=== PATIENT | male | born 1980 | race Caucasian/White ===

== ENCOUNTER 2016-09-23 02:16 | Inpatient (IN) | payer OTHER ==
[2016-09-23] MEDS ORDERED: IV VANCOMYCIN PER PHARMACY 1 EACH MISC MISCELLANE PRN (02:37)
[2016-09-23] MEDS ORDERED: ACETAMINOPHEN TAB 500 MG TAB PO STA (02:37)
[2016-09-23] MEDS ORDERED: AMPICILLIN-SULBACTAM 3 GM in SODIUM CHLORIDE 0.9% 100 ML IVPB STA (02:44)
[2016-09-23] MEDS ORDERED: VANCOMYCIN 2,500 MG in SODIUM CHLORIDE 0.9% 500 ML IVPB STA (02:47)
[2016-09-23] MEDS ORDERED: ENALAPRILAT 1.25 MG/ML 1 ML VIAL IVP STA (02:50)
--- NOTE | 2016-09-23 02:50 | ED ---
Skin/Abscess/FB HPI - General Source: patient, RN notes reviewed Mode of arrival: ambulatory Limitations: no limitations <Darlin Moser - Last Filed: 09/23/16 03:38> <Curtis Patiño - Last Filed: 09/23/16 04:00> - General Chief complaint: Skin/Abscess/Foreign Body Stated complaint: leg infection Time Seen by Provider: 09/23/16 02:26 - History of Present Illness Initial comments: 35-year-old male presents to the emergency room chief complaint of abscess and redness to the left lower externa. Patient states this started last 2 days today he notes just become very red and very tender. Patient has noticed some drainage from the area as well. Patient denies any history of MRSA in the legs. Patient states he is very weak and rundown. Patient states that he was concerned due to the fact this was worsening street thought that he should be reevaluated. Patient also does state that recently he was informed he has high blood pressure as well as a high glucose and is currently trying to get into the doctor to be evaluated for this. Patient denies any recent fever, chills, shortness of breath, chest pain, back pain, abdominal pain, nausea vomiting, numbness or tingling, dysuria or hematuria, constipation or diarrhea, headaches or visual changes, or any other current symptoms. (Darlin Moser) - Related Data Home Medications Medication Instructions Recorded Confirmed Dextroamphetamine/Amphetamine 20 mg PO DAILY 09/23/16 09/23/16 [Adderall] Allergies Allergy/AdvReac Type Severity Reaction Status Date / Time No Known Allergies Allergy Verified 09/23/16 02:24 Review of Systems ROS Other: All systems not noted in ROS Statement are negative. <Darlin Moser - Last Filed: 09/23/16 03:38> ROS Other: All systems not noted in ROS Statement are negative. <Curtis Patiño - Last Filed: 09/23/16 04:00> ROS Statement: Those systems with pertinent positive or pertinent negative responses have been documented in the HPI. Past Medical History Past Medical History: Hypertension History of Any Multi-Drug Resistant Organisms: None Reported Past Surgical History: No Surgical Hx Reported Past Psychological History: No Psychological Hx Reported Smoking Status: Current every day smoker Past Alcohol Use History: Occasional Past Drug Use History: Marijuana <Darlin Moser - Last Filed: 09/23/16 03:38> General Exam Limitations: no limitations General appearance: alert, in no apparent distress Eye exam: Present: normal appearance, PERRL, EOMI. Absent: scleral icterus, conjunctival injection, periorbital swelling ENT exam: Present: normal exam, mucous membranes moist Neck exam: Present: normal inspection. Absent: tenderness, meningismus, lymphadenopathy Respiratory exam: Present: normal lung sounds bilaterally. Absent: respiratory distress, wheezes, rales, rhonchi, stridor Cardiovascular Exam: Present: regular rate, normal rhythm, normal heart sounds. Absent: systolic murmur, diastolic murmur, rubs, gallop, clicks Neurological exam: Present: alert, oriented X3, CN II-XII intact. Absent: motor sensory deficit Psychiatric exam: Present: normal affect, normal mood Skin exam: Present: other (patient does appear to have cellulitis with a firm nodule to the left inner thigh. There was minimal fluctuance to the area. There does appear to be an area of drainage as well.) <Darlin Moser - Last Filed: 09/23/16 03:38> Course <Darlin Moser - Last Filed: 09/23/16 03:38> <Curtis Patiño - Last Filed: 09/23/16 04:00> Vital Signs 09/23/16 09/23/16 09/23/16 02:21 02:26 03:00 Temperature 99.0 F 100.5 F H 99.0 F Pulse Rate 127 H 114 H Respiratory 24 22 Rate Blood Pressure 215/135 175/93 O2 Sat by Pulse 98 98 Oximetry 09/23/16 03:14 Temperature Pulse Rate 108 H Respiratory 18 Rate Blood Pressure 175/71 O2 Sat by Pulse 98 Oximetry - Reevaluation(s) Reevaluation #1: 09/23/16 03:59 Patient reevaluated and updated. Case discussed with practitioner Neha ram, who will admit for Dr. Botello, covering for Dr. Alice Botello. (Curtis Patiño) Procedures <Darlin Moser - Last Filed: 09/23/16 03:38> <Curtis Patiño - Last Filed: 09/23/16 04:00> - Procedures Initial comment: Procedure: Incision and drainage The skin overlying the abscess was prepped with Betadine, and anesthetized with 1% lidocaine without epinephrine. A #11 scalpel was then used to incise the abscess. minimal purulent material was then extracted from the lesion. Gauze dressing placed on top, The patient tolerated the procedure well. (Darlin Moser) Medical Decision Making - Lab Data Result diagrams: 09/23/16 02:50 09/23/16 02:50 Interpretation: no acute changes <Darlin Moser - Last Filed: 09/23/16 03:38> - Lab Data Result diagrams: 09/23/16 02:50 09/23/16 02:50 <Curtis Patiño - Last Filed: 09/23/16 04:00> - Medical Decision Making 35-year-old male presents emergency Department what appears to be a left left leg cellulitis with concern for possible abscess to the area patient does appear to be septic at this time. Antibiotics were started. Patient did undergo I&D that did not produce much purulent material. At this time we will admit the patient for IV antibiotics. We discussed this with the patient is in agreement with the plan. Patient is found to be hypertensive we did treat him with Vasotec. Patient is found to be hyperglycemic with a normal acetone and mild elevated lactic. We will continue to hydrate and admit pt for antibiotics. (Darlin Moser) - Lab Data Lab Results 09/23/16 09/23/16 09/23/16 Range/Units 02:50 02:50 02:50 WBC 6.9 (3.8-10.6) k/uL RBC 4.39 (4.30-5.90) m/uL Hgb 14.4 (13.0-17.5) gm/dL Hct 41.9 (39.0-53.0) % MCV 95.4 (80.0-100.0) fL MCH 32.8 (25.0-35.0) pg MCHC 34.3 (31.0-37.0) g/dL RDW 12.4 (11.5-15.5) % Plt Count 240 (150-450) k/uL Neutrophils % 66 % Lymphocytes % 21 % Monocytes % 7 % Eosinophils % 2 % Basophils % 1 % Neutrophils # 4.6 (1.3-7.7) k/uL Lymphocytes # 1.4 (1.0-4.8) k/uL Monocytes # 0.5 (0-1.0) k/uL Eosinophils # 0.2 (0-0.7) k/uL Basophils # 0.1 (0-0.2) k/uL PT (9.0-12.0) sec INR (<1.1) APTT (22.0-30.0) sec Sodium 139 (137-145) mmol/L Potassium 3.5 (3.5-5.1) mmol/L Chloride 103 (98-107) mmol/L Carbon Dioxide 27 (22-30) mmol/L Anion Gap 9 mmol/L BUN 16 (9-20) mg/dL Creatinine 0.76 (0.66-1.25) mg/dL Est GFR (MDRD) Af Amer >60 (>60 ml/min/1.73 sqM) Est GFR (MDRD) Non-Af >60 (>60 ml/min/1.73 sqM) Glucose 355 H (74-99) mg/dL POC Glucose (mg/dL) (75-99) mg/dL POC Glu Collator Hand ID Plasma Lactic Acid César (0.7-2.0) mmol/L Calcium 9.0 (8.4-10.2) mg/dL Total Bilirubin 0.6 (0.2-1.3) mg/dL AST 33 (17-59) U/L ALT 46 (21-72) U/L Alkaline Phosphatase 109 (38-126) U/L Total Creatine Kinase 282 H (55-170) U/L CK-MB (CK-2) 3.2 H* (0.0-2.4) ng/mL CK-MB (CK-2) Rel Index 1.1 Troponin I <0.012 (0.000-0.034) ng/mL Total Protein 8.1 (6.3-8.2) g/dL Albumin 4.0 (3.5-5.0) g/dL Acetone, Qual (Negative) 09/23/16 09/23/16 09/23/16 Range/Units 02:50 02:50 02:50 WBC (3.8-10.6) k/uL RBC (4.30-5.90) m/uL Hgb (13.0-17.5) gm/dL Hct (39.0-53.0) % MCV (80.0-100.0) fL MCH (25.0-35.0) pg MCHC (31.0-37.0) g/dL RDW (11.5-15.5) % Plt Count (150-450) k/uL Neutrophils % % Lymphocytes % % Monocytes % % Eosinophils % % Basophils % % Neutrophils # (1.3-7.7) k/uL Lymphocytes # (1.0-4.8) k/uL Monocytes # (0-1.0) k/uL Eosinophils # (0-0.7) k/uL Basophils # (0-0.2) k/uL PT 10.3 (9.0-12.0) sec INR 1.0 (<1.1) APTT 22.4 (22.0-30.0) sec Sodium (137-145) mmol/L Potassium (3.5-5.1) mmol/L Chloride (98-107) mmol/L Carbon Dioxide (22-30) mmol/L Anion Gap mmol/L BUN (9-20) mg/dL Creatinine (0.66-1.25) mg/dL Est GFR (MDRD) Af Amer (>60 ml/min/1.73 sqM) Est GFR (MDRD) Non-Af (>60 ml/min/1.73 sqM) Glucose (74-99) mg/dL POC Glucose (mg/dL) (75-99) mg/dL POC Glu Collator Hand ID Plasma Lactic Acid César 3.7 H* (0.7-2.0) mmol/L Calcium (8.4-10.2) mg/dL Total Bilirubin (0.2-1.3) mg/dL AST (17-59) U/L ALT (21-72) U/L Alkaline Phosphatase (38-126) U/L Total Creatine Kinase (55-170) U/L CK-MB (CK-2) (0.0-2.4) ng/mL CK-MB (CK-2) Rel Index Troponin I (0.000-0.034) ng/mL Total Protein (6.3-8.2) g/dL Albumin (3.5-5.0) g/dL Acetone, Qual Negative (Negative) 09/23/16 Range/Units 02:59 WBC (3.8-10.6) k/uL RBC (4.30-5.90) m/uL Hgb (13.0-17.5) gm/dL Hct (39.0-53.0) % MCV (80.0-100.0) fL MCH (25.0-35.0) pg MCHC (31.0-37.0) g/dL RDW (11.5-15.5) % Plt Count (150-450) k/uL Neutrophils % % Lymphocytes % % Monocytes % % Eosinophils % % Basophils % % Neutrophils # (1.3-7.7) k/uL Lymphocytes # (1.0-4.8) k/uL Monocytes # (0-1.0) k/uL Eosinophils # (0-0.7) k/uL Basophils # (0-0.2) k/uL PT (9.0-12.0) sec INR (<1.1) APTT (22.0-30.0) sec Sodium (137-145) mmol/L Potassium (3.5-5.1) mmol/L Chloride (98-107) mmol/L Carbon Dioxide (22-30) mmol/L Anion Gap mmol/L BUN (9-20) mg/dL Creatinine (0.66-1.25) mg/dL Est GFR (MDRD) Af Amer (>60 ml/min/1.73 sqM) Est GFR (MDRD) Non-Af (>60 ml/min/1.73 sqM) Glucose (74-99) mg/dL POC Glucose (mg/dL) 419 H (75-99) mg/dL POC Glu Collator Hand ID Kirill Peters Plasma Lactic Acid César (0.7-2.0) mmol/L Calcium (8.4-10.2) mg/dL Total Bilirubin (0.2-1.3) mg/dL AST (17-59) U/L ALT (21-72) U/L Alkaline Phosphatase (38-126) U/L Total Creatine Kinase (55-170) U/L CK-MB (CK-2) (0.0-2.4) ng/mL CK-MB (CK-2) Rel Index Troponin I (0.000-0.034) ng/mL Total Protein (6.3-8.2) g/dL Albumin (3.5-5.0) g/dL Acetone, Qual (Negative) 09/23/16 02:54 sinus tachycardia, rate 113 bpm, incomplete RBBB, NC 170ms (Darlin Moser) Disposition Time of Disposition: 03:39 Decision Date: 09/23/16 Decision Time: 03:39 <Darlin Moser - Last Filed: 09/23/16 03:38> <Curtis Patiño - Last Filed: 09/23/16 04:00> Clinical Impression: Left leg cellulitis, Sepsis, Hypertensive urgency, Hyperglycemia Disposition: ADMITTED IP TO THIS HOSP Condition: Stable Referrals: Rosa Muñiz MD [Primary Care Provider] - 1-2 days
[2016-09-23] MEDS: SODIUM CHLORIDE 0.9% 500 ML IV SCH ×2 (02:52→03:29)
[2016-09-23] MEDS ORDERED: SODIUM CHLORIDE 0.9% 1,000 ML IV STA (03:01)
[2016-09-23 03:02] LABS: Glucose,Whole Blood 419 mg/dL (75-99)
[2016-09-23 03:13] LABS: Basophils # (A) 0.1 k/uL (0-0.2); Basophils % (A) 1 %; CH 33.4; CHCM 35.1; Eosinophils # (A) 0.2 k/uL (0-0.7); Eosinophils % (A) 2 %; HCT 41.9 % (39.0-53.0); HGB 14.4 gm/dL (13.0-17.5); Luc # (Auto) 0.19; Luc % (Auto) 3; Lymphocytes # (A) 1.4 k/uL (1.0-4.8); Lymphocytes % (A) 21 %; MCH 32.8 pg (25.0-35.0); MCHC 34.3 g/dL (31.0-37.0); MCV 95.4 fL (80.0-100.0); Mean Platelet Volume 7.9; Monocytes # (A) 0.5 k/uL (0-1.0); Monocytes % (A) 7 %; Neutrophils # (A) 4.6 k/uL (1.3-7.7); Neutrophils % (A) 66 %; RBC 4.39 m/uL (4.30-5.90); RDW 12.4 % (11.5-15.5); WBC 6.9 k/uL (3.8-10.6); WBC (Perox) 6.26
[2016-09-23 03:14] LABS: ALT 46 U/L (21-72); AST 33 U/L (17-59); Alkaline Phosphatase 109 U/L (38-126); Anion Gap 9 mmol/L; Blood Urea Nitrogen 16 mg/dL (9-20); Carbon Dioxide 27 mmol/L (22-30); Chloride 103 mmol/L (98-107); Glucose 355 mg/dL (74-99); Non-African American GFR(MDRD) >60 (>60 ml/min/1.73 sqM); Potassium 3.5 mmol/L (3.5-5.1); Sodium 139 mmol/L (137-145); Total Bilirubin 0.6 mg/dL (0.2-1.3); Total Protein 8.1 g/dL (6.3-8.2)
[2016-09-23 03:25] LABS: Creatine Kinase 282 U/L (55-170); Partial Thromboplastin Time 22.4 sec (22.0-30.0); Prothrombin Time 10.3 sec (9.0-12.0)
[2016-09-23] MEDS ORDERED: ACETAMINOPHEN TAB 500 MG TAB PO PRN (03:40)
[2016-09-23 03:44] LABS: Creatine Kinase MB 3.2 ng/mL (0.0-2.4); Troponin I <0.012 ng/mL (0.000-0.034)
[2016-09-23 05:16] LABS: Glucose,Whole Blood 255 mg/dL (75-99)
[2016-09-23] MEDS: INSULIN LISPRO (humaLOG) 300 UNIT/3 ML VIAL SQ SCH ×4 (05:29→21:00)
[2016-09-23 08:10] LABS: Glucose,Whole Blood 209 mg/dL (75-99)
[2016-09-23] MEDS ORDERED: NON-FORMULARY DRUG (Dextroamphetamine/Amphetamine [Adderall] 20 MG) PO SCH (09:00)
[2016-09-23] MEDS: VANCOMYCIN 2,500 MG in SODIUM CHLORIDE 0.9% 500 ML IVPB SCH ×2 (10:11→18:11)
[2016-09-23] MEDS: HYDROmorphone 1 MG/ML 1 ML SYRINGE IVP PRN ×2 (11:21→16:00)
[2016-09-23 11:42] LABS: Glucose,Whole Blood 273 mg/dL (75-99)
[2016-09-23] MEDS: AMPICILLIN-SULBACTAM 3 GM in SODIUM CHLORIDE 0.9% 100 ML IVPB SCH ×3 (13:21→20:54)
--- NOTE | 2016-09-23 15:06 | P.GSCN ---
History of Present Illness Consult date: 09/23/16 Reason for Consult: Left thigh cellulitis History of present illness: This a 35-year-old male who was admitted to the hospital yesterday with complaints of fever and chills. Patient was found to have a right thigh abscess. He had an incision and drainage performed. The patient states that he 's had redness swelling in this area for the last 3 or 4 days. Review of Systems - Constitutional Reports as per HPI Past Medical History Past Medical History: Hypertension, Liver Disease Additional Past Medical History / Comment(s): Pt recently told he has high blood sugar. He made an appt. to establish with Dr. Muñiz. He had a liver infection a few yrs ago which was caused by the water he drank while camping-liver is back to normal. History of Any Multi-Drug Resistant Organisms: None Reported Past Surgical History: No Surgical Hx Reported Additional Past Anesthesia/Blood Transfusion Reaction / Comm: Pt has never had anesthesia/surgery. Past Psychological History: ADD/ADHD, Depression Additional Psychological History / Comment(s): Pt takes adderal for ADHD. He currently is residing with a friend who lives in this area. Pt lives in [place], [place] and is in the process of moving to this area. He is independent. He drives. Smoking Status: Current every day smoker Past Alcohol Use History: Occasional Additional Past Alcohol Use History / Comment(s): Pt started smoking in 1994 and was a ppd smoker until 2 yrs ago when he cut back to 1/2 ppd smoking. He drinks alcohol but not more than 14 drinks a week. Past Drug Use History: Marijuana Additional Drug Use History / Comment(s): Pt will occasionally smoke marijuana. - Past Family History Father Family Medical History: Congestive Heart Failure (CHF) Additional Family Medical History / Comment(s): Father of CHF at the age of 47yrs. Mother Family Medical History: Diabetes Mellitus Additional Family Medical History / Comment(s): Mother is livingl. Medications and Allergies Home Medications Medication Instructions Recorded Confirmed Type Dextroamphetamine/Amphetamine 20 mg PO TID 09/23/16 09/23/16 History [Adderall] Allergies Allergy/AdvReac Type Severity Reaction Status Date / Time No Known Allergies Allergy Verified 09/23/16 07:29 Surgical - Exam Vital Signs Temp Pulse Resp BP Pulse Ox 99.0 F 127 H 24 215/135 98 09/23/16 02:21 09/23/16 02:21 09/23/16 02:21 09/23/16 02:21 09/23/16 02:21 - General well developed, no distress - Eyes PERRL - ENT normal pinna - Respiratory normal expansion - Cardiovascular Rhythm: regular - Abdomen Abdomen: soft, non tender - Integumentary Draining abscess of left medial thigh. There is a 15 x 20 cm area of cellulitis. Results - Labs 09/23/16 02:50 09/23/16 02:50 Abnormal Lab Results - Last 24 Hours (Table) 09/23/16 09/23/16 09/23/16 Range/Units 05:14 08:02 11:40 POC Glucose (mg/dL) 255 H 209 H 273 H (75-99) mg/dL Assessment and Plan Plan: Left thigh cellulitis and abscess. Patient continue receive IV antibiotics. We will obtain infectious disease consultation.
[2016-09-23 15:13] VITALS: BMI 53.5
[2016-09-23 15:13] LABS: Hemoglobin A1C 9.6 % (4.2-6.1)
[2016-09-23] MEDS ORDERED: TEMAZEPAM 15 MG CAP PO PRN (16:18)
[2016-09-23] MEDS: NICOTINE 14MG/24HR PATCH TRANSDERM SCH (17:23)
[2016-09-23] MEDS: HEPARIN SODIUM,PORCINE 5,000 UNIT/ML 1 ML VIAL SQ SCH (17:23)
[2016-09-23 17:34] LABS: Glucose,Whole Blood 267 mg/dL (75-99)
--- NOTE | 2016-09-23 18:14 | HP ---
DATE OF ADMISSION: 09/23/2016 CHIEF COMPLAINT: Pain and swelling of the left groin as well as weakness and tiredness. HISTORY OF PRESENT ILLNESS: This 35-year-old gentleman with a past medical history of multiple problems, including hypertension, history of chronic liver disease, history of diabetes mellitus, being seen by Dr. Rosa Muñiz, also has a history of ADD and ADHD and depression. The patient has some skin lesions on the right arm, but currently the patient is complaining of pain and swelling of the left groin area which started about 2 days ago. The area was extremely red and tender. There was some drainage also. The patient was evaluated in the emergency room at [facility] and had incision and drainage, admitted for further evaluation and treatment. The cultures are negative so far. White count is normal. The patient is admitted for further evaluation. Blood sugars are elevated up to 419. Also plasma lactic acid is 3.7, indicating sepsis present on admission. There is no history of any fever, rigor, or chills. No history of any headache, loss of consciousness, seizures. PAST MEDICAL HISTORY: 1. History of hypertension. 2. History of chronic liver disease secondary to water intake. 3. ADD, ADHD. 4. Depression not otherwise specified. 5. History of nicotine dependence. HOME MEDICATIONS: Adderall 20 mg p.o. t.i.d. ALLERGIES: NONE. FAMILY HISTORY: History of CHF in the family. SOCIAL HISTORY: Current smoker. History of alcohol. REVIEW OF SYSTEMS: ENT: No diminishing hearing. No diminished vision. CARDIOVASCULAR SYSTEM: No angina, palpitations. RESPIRATORY SYSTEM: No cough, hemoptysis. GI: No nausea, vomiting. : No dysuria, retention. NERVOUS SYSTEM: No numbness or weakness. ALLERGY/IMMUNOLOGY: No asthma, hayfever. MUSCULOSKELETAL: As mentioned earlier. HEMATOLOGY/ONCOLOGY: No history of anemia. ENDOCRINE: Diabetes mellitus. CONSTITUTIONAL: As mentioned earlier. DERMATOLOGY: Negative. RHEUMATOLOGY: Negative. PSYCHIATRY: As mentioned earlier. PHYSICAL EXAMINATION: Patient is alert and oriented x3. Pulse 85, blood pressure 155/84, respiration 20, temperature 97.9, pulse ox 96% on room air. HEENT: Conjunctivae normal. NECK: No jugular venous distention. CARDIOVASCULAR SYSTEM: S1, S2 muffled. RESPIRATORY: Breath sounds diminished at the bases. A few scattered rhonchi. No crackles. ABDOMEN: Soft, obese. Non-tender. No mass palpable. LEGS: Right leg erythema and tenderness present in the right thompson area, anterior part. Left leg has significant swelling and erythema, tenderness, status post incision and drainage, almost in the medial part of the upper thigh and groin area. External genitalia not affected. SKIN: As mentioned earlier. LYMPHATICS: No lymph node palpable in neck, axillae or groin. NERVOUS SYSTEM: Higher functions as mentioned earlier. Moves all 4 limbs. No focal motor or sensory deficit. LAB INVESTIGATIONS: CBC within normal limits. Glucose 419, 255. Hemoglobin A1c is 9.6. Plasma lactic acid is 3.7. ASSESSMENT: 1. Acute cellulitis with abscess of the left upper medial thigh, status post incision and drainage, with acute sepsis, present on admission. 2. Diabetes mellitus, type 2, new onset, uncontrolled, present on admission. 3. Increased plasma lactic acid secondary to sepsis, present on admission. 4. Morbid obesity with body mass index of 53.6, present on admission. 5. History of hypertension, essential. 6. History of liver disease. 7. History of attention deficit disorder, attention deficit hyperactivity disorder. 8. History of depression. 9. History of nicotine dependence. RECOMMENDATIONS AND DISCUSSION: In this 35-year-old gentleman who presented with multiple complex medical issues, we will monitor the patient closely, continue the current medication, continue with symptomatic treatment. Broad-spectrum IV antibiotics. Vancomycin. Unasyn has been initiated. I would recommend infectious disease evaluation and surgical evaluation also. Guarded prognosis because of multiple complex medical issues. Further recommendations to follow. A copy of this dictation is being forwarded to Dr. Rosa Muñiz, who is the primary physician.
[2016-09-23 20:44] LABS: Glucose,Whole Blood 274 mg/dL (75-99)
[2016-09-23] MEDS ORDERED: INSULIN GLARGINE 100 UNIT/ML 10 ML VIAL SQ SCH (21:00)
[2016-09-24] MEDS: HEPARIN SODIUM,PORCINE 5,000 UNIT/ML 1 ML VIAL SQ SCH ×3 (00:24→16:08)
[2016-09-24] MEDS: VANCOMYCIN 2,500 MG in SODIUM CHLORIDE 0.9% 500 ML IVPB SCH ×3 (03:22→18:06)
[2016-09-24] MEDS: AMPICILLIN-SULBACTAM 3 GM in SODIUM CHLORIDE 0.9% 100 ML IVPB SCH ×3 (06:00→17:05)
[2016-09-24 07:04] LABS: Glucose,Whole Blood 211 mg/dL (75-99)
[2016-09-24] MEDS: MULTIVITAMINS, THERA 1 EACH TAB PO SCH (07:35)
[2016-09-24] MEDS: NICOTINE 14MG/24HR PATCH TRANSDERM SCH (07:35)
[2016-09-24] MEDS: PANTOPRAZOLE 40 MG TABLET PO SCH (07:35)
[2016-09-24] MEDS: INSULIN LISPRO (humaLOG) 300 UNIT/3 ML VIAL SQ SCH ×3 (07:36→18:06)
[2016-09-24] MEDS: HYDROcodone/APAP 5-325MG 1 EACH TAB PO PRN ×3 (07:54→18:06)
[2016-09-24 08:07] LABS: Basophils % (A) 1 %; CH 33.1; CHCM 34.4; Eosinophils # (A) 0.2 k/uL (0-0.7); Eosinophils % (A) 4 %; HDW 2.95; HGB 13.3 gm/dL (13.0-17.5); Luc % (Auto) 2; Lymphocytes # (A) 1.1 k/uL (1.0-4.8); Lymphocytes % (A) 23 %; MCH 32.2 pg (25.0-35.0); MCHC 33.2 g/dL (31.0-37.0); MCV 96.8 fL (80.0-100.0); Mean Platelet Volume 8.5; Monocytes # (A) 0.3 k/uL (0-1.0); Monocytes % (A) 5 %; Neutrophils # (A) 3.3 k/uL (1.3-7.7); Neutrophils % (A) 66 %; RBC 4.13 m/uL (4.30-5.90); RDW 12.5 % (11.5-15.5); WBC (Perox) 4.63
[2016-09-24 08:20] LABS: Anion Gap 4 mmol/L; Blood Urea Nitrogen 14 mg/dL (9-20); Calcium 8.6 mg/dL (8.4-10.2); Carbon Dioxide 28 mmol/L (22-30); Chloride 106 mmol/L (98-107); Glucose 213 mg/dL (74-99); Non-African American GFR(MDRD) >60 (>60 ml/min/1.73 sqM); Sodium 138 mmol/L (137-145)
--- NOTE | 2016-09-24 08:40 | CONS ---
DATE OF CONSULTATION: 09/23/2016 REASON FOR CONSULTATION: Left upper thigh abscess and cellulitis. HISTORY OF PRESENT ILLNESS: The patient is a 35-year-old morbidly obese male who presented to the ER with a chief complaints of increasing swelling and redness to the left upper medial thigh area that she said started two days ago and started like a pimple which gradually became more swollen and red. The patient denies any history of any trauma or any drainage from it. Patient has denies any high-grade fever and did have some chills. Patient did not have any history of MRSA infection. Subsequently, the patient has been evaluated by the ER physician where the patient attempted I&D was done; however, only blood came out. No cultures were done. The patient was started on vancomycin and Unasyn and admitted to the hospital. Surgery was consulted who recommended local wound care and asked me to see the patient for recommendations regarding antibiotic therapy. Patient is rather sore at this point. He denies any chest pain or shortness of breath or cough. No abdominal pain or any diarrhea. REVIEW OF SYSTEMS: CONSTITUTIONAL: Positive for weakness. No high-grade fever. EYES: No complaint. ENT: No complaint. RESPIRATORY: No complaint. CARDIOVASCULAR: No complaint. GENITOURINARY: No complaint. GASTROINTESTINAL: No complaint. MUSCULOSKELETAL: No complaint. INTEGUMENTARY: As per HPI. PSYCHOLOGICAL: No complaint. ENDOCRINE: No complaint. NEUROLOGIC: No complaint. PAST MEDICAL HISTORY: Hypertension. PAST SURGICAL HISTORY: No major surgery. SOCIAL HISTORY: Positive for smoking about a pack a day. Denies drinking or drug use. Occasionally smokes and did admit to marijuana use. FAMILY HISTORY: No pertinent findings were noticed. ALLERGIES: No known drug allergies. Medications include the patient currently on Tylenol, Mcdaniel, Xanax, Unasyn, heparin, Dilaudid, Lantus, Humalog, Theragran, nicotine patch, Protonix, Restoril, and vancomycin. On examination, blood pressure is 155/84 with a pulse of 85, temperature 97.8. He is 96% on room air. He did have fever of 100.5 in the ER though. General description is a middle-age male lying in bed in no distress. No tachypnea or accessory muscle of respiration use. HEENT examination shows no pallor or scleral icterus. Oral mucous membranes dry. NECK: Trachea central. There is no thyromegaly. LUNGS: Unlabored breathing. Clear to auscultation anteriorly. HEART: S1, S2. Regular rate and rhythm. ABDOMEN: Soft, nontender. EXTREMITIES: No edema of feet. Examination of the left upper medial thigh shows indurated area with some surrounding swelling and redness. The area that was I&D'd down in the ER was probed with mostly bloody secretions that has been sent for the culture. NEUROLOGICAL: The patient is awake, alert, oriented x3. Mood and affect normal. LABS: Hemoglobin 14.4, white count 6.9 with a BUN of 16, creatinine 0.76, glucose 355. DIAGNOSTIC IMPRESSION AND PLAN: Patient with left upper medial thigh abscess with some secondary cellulitis with close proximity to the genitourinary area. Will need to cover for both Gram-positive and Gram-negative pathogen in a patient who does have newly diagnosis of diabetes mellitus. No history of methicillin-resistant Staphylococcus aureus infection. PLAN: 1. Swab was obtained from the area for Gram stain and cultures that should narrow down antibiotic therapy. Blood cultures have already been obtained. 2. Patient will continue on Unasyn and Vanco while awaiting for the culture to finalize. 3. Will follow up on the clinical condition and cultures to further adjust the medication if needed. Thank you for this consultation. Will follow this patient along with you. AURA
[2016-09-24] MEDS ORDERED: VANCOMYCIN TROUGH DUE 1 EACH MISC MISCELLANE ONE (09:00)
[2016-09-24] MEDS: HYDROmorphone 1 MG/ML 1 ML SYRINGE IVP PRN ×3 (09:07→16:17)
[2016-09-24] MEDS ORDERED: amLODIPine 5 MG TAB PO SCH (09:15)
[2016-09-24 11:36] LABS: Glucose,Whole Blood 288 mg/dL (75-99)
[2016-09-24] MEDS ORDERED: hydrALAZINE HCL 20 MG/ML 1 ML VIAL IVP PRN (12:03)
--- NOTE | 2016-09-24 12:15 | P.OP ---
Date of Procedure: 09/24/16 Preoperative Diagnosis: Abscess of posterior neck Postoperative Diagnosis: Same Procedure(s) Performed: Incision and drainage of abscess left posterior neck Anesthesia: local Surgeon: Ramos Wright Estimated Blood Loss (ml): 0 Pathology: none sent Condition: stable Disposition: no change Indications for Procedure: Patient was admitted the yesterday with an abscess of the left thigh that was incised and drained in the emergency room. Today he reports pain and swelling in the posterior neck just left of the midline and when examined was found to have an abscess about 2 cm in diameter slightly fluctuant with some purulent tissue palpable underneath the skin. Drainage was recommended and informed consent was obtained. Operative Findings: Abscess left posterior neck Description of Procedure: With the patient in the right lateral position the area was prepped with Betadine and draped local anesthetic lidocaine 1% was infiltrated into the overlying skin and subcutaneous tissues. A transverse incision was made and the material evacuated. Was packed with the quarter-inch gauze and a dressing was applied
[2016-09-24] MEDS ORDERED: LIDOCAINE 1% INJ 10MG/ML (20 ML MDV) SQ ONE (12:30)
[2016-09-24] MEDS: cloNIDine HCL 0.1 MG TAB PO PRN ×2 (12:37→16:17)
[2016-09-24] MEDS: ALPRAZolam 0.25 MG TAB PO PRN (13:05)
[2016-09-24 17:25] LABS: Glucose,Whole Blood 212 mg/dL (75-99)
[2016-09-24 19:58] LABS: Glucose,Whole Blood 247 mg/dL (75-99)
[2016-09-24] MEDS ORDERED: INSULIN GLARGINE 100 UNIT/ML 10 ML VIAL SQ SCH (21:00)
[2016-09-24] MEDS ORDERED: amLODIPine 5 MG TAB ONE (21:45)
[2016-09-24] MEDS ORDERED: INSULIN GLARGINE 100 UNIT/ML 10 ML VIAL SQ ONE (21:45)
[2016-09-24] MEDS ORDERED: HYDROmorphone 1 MG/ML 1 ML SYRINGE ONE (21:45)
[2016-09-25] MEDS: HEPARIN SODIUM,PORCINE 5,000 UNIT/ML 1 ML VIAL SQ SCH ×3 (00:19→17:10)
[2016-09-25] MEDS: AMPICILLIN-SULBACTAM 3 GM in SODIUM CHLORIDE 0.9% 100 ML IVPB SCH ×5 (02:06→21:35)
[2016-09-25] MEDS: VANCOMYCIN 2,500 MG in SODIUM CHLORIDE 0.9% 500 ML IVPB SCH ×3 (03:09→17:17)
[2016-09-25 07:07] LABS: Glucose,Whole Blood 134 mg/dL (75-99)
[2016-09-25] MEDS: amLODIPine 5 MG TAB PO SCH ×3 (07:39→21:12)
--- NOTE | 2016-09-25 07:40 | PN ---
DATE OF SERVICE: 09/24/2016 Reason for follow-up is left upper thigh abscess. INTERVAL HISTORY: The patient is afebrile. He denies any worsening pain to the left upper thigh area. Denies significant chest pain. No shortness of breath or cough. No abdominal pain or any diarrhea. On examination, blood pressure is 139/99, pulse 103, temperature 98.1. He is 94% on room air. General description is middle aged male lying in bed in no distress. RESPIRATORY SYSTEM: Unlabored breathing. Clear to auscultation. HEART: S1, S2 regular rate and rhythm. ABDOMEN: Soft, no tenderness. Left upper thigh area of induration slightly decreased. Redness decreased as well. No drainage. LABS: Hemoglobin is 13.2, white count 5.0, BUN of 14, creatinine 0.51. Cultures are currently pending. DIAGNOSTIC IMPRESSION AND PLAN: Patient with left upper thigh/groin area abscess, status post attempted drainage. We did obtain culture yesterday; waiting for them to finalize. Continue the patient on the broad spectrum antibiotics in the form of Zosyn and vancomycin adjusting it further based on culture report. Continue supportive care.
[2016-09-25] MEDS: INSULIN LISPRO (humaLOG) 300 UNIT/3 ML VIAL SQ SCH ×7 (07:41→21:12)
[2016-09-25] MEDS: NICOTINE 14MG/24HR PATCH TRANSDERM SCH (07:42)
[2016-09-25] MEDS: HYDROcodone/APAP 5-325MG 1 EACH TAB PO PRN ×3 (07:43→21:18)
[2016-09-25] MEDS: PANTOPRAZOLE 40 MG TABLET PO SCH (07:44)
[2016-09-25] MEDS: MULTIVITAMINS, THERA 1 EACH TAB PO SCH (07:44)
[2016-09-25 09:53] LABS: Basophils % (A) 1 %; CH 32.8; CHCM 34.1; Eosinophils # (A) 0.2 k/uL (0-0.7); Eosinophils % (A) 5 %; HDW 2.87; Luc # (Auto) 0.09; Luc % (Auto) 2; Lymphocytes # (A) 1.1 k/uL (1.0-4.8); Lymphocytes % (A) 25 %; MCH 32.9 pg (25.0-35.0); MCHC 34.1 g/dL (31.0-37.0); MCV 96.6 fL (80.0-100.0); Mean Platelet Volume 7.7; Monocytes # (A) 0.3 k/uL (0-1.0); Monocytes % (A) 6 %; Neutrophils # (A) 2.8 k/uL (1.3-7.7); Neutrophils % (A) 62 %; RBC 3.94 m/uL (4.30-5.90); RDW 12.6 % (11.5-15.5); WBC 4.5 k/uL (3.8-10.6); WBC (Perox) 4.48
[2016-09-25 10:02] LABS: Anion Gap 5 mmol/L; Blood Urea Nitrogen 14 mg/dL (9-20); Calcium 8.5 mg/dL (8.4-10.2); Carbon Dioxide 28 mmol/L (22-30); Chloride 103 mmol/L (98-107); Glucose 246 mg/dL (74-99); Non-African American GFR(MDRD) >60 (>60 ml/min/1.73 sqM); Sodium 136 mmol/L (137-145)
[2016-09-25] MEDS: HYDROmorphone 1 MG/ML 1 ML SYRINGE IVP PRN ×2 (10:04→17:20)
[2016-09-25 10:14] LABS: Potassium 3.8 mmol/L (3.5-5.1)
[2016-09-25 11:34] LABS: Glucose,Whole Blood 253 mg/dL (75-99)
--- NOTE | 2016-09-25 12:20 | P.PN ---
Progress Note - Text The patient is stable. Afebrile. Minimal drainage from both the I&D sites. Cellulitis is resolving. Impression improved status post I&D of abscess left thigh and the posterior neck. Recommendation patient Kimmitt discharge the from a surgical standpoint except day or so. Follow-up as an outpatient. His will be taught to change the packing on a daily basis and both wounds with 1/4 inch guaze.
--- NOTE | 2016-09-25 16:06 | PN ---
DATE OF SERVICE: 09/24/2016 This 35-year-old gentleman who was admitted with acute cellulitis with abscess of the left upper thigh is being closely monitored at this time. Dr. Wright has evaluated the patient and patient underwent incision and drainage of the abscess off the left posterior neck also. No chest pain. No palpitation. No fever. On exam, alert and oriented x3. Pulse is 91, blood pressure 160/90, respirations 20, temperature 98.4, pulse ox 94% on room air. HEENT: Conjunctivae normal. NECK: No jugular venous distention. CARDIOVASCULAR: S1 and S2, muffled. RESPIRATORY: Breath sounds diminished at the bases. No rhonchi or crackles. ABDOMEN: Soft, obese. LEGS: Minimal edema. NERVOUS SYSTEM: No focal deficits. Examination of the left medial thigh infection and as well as left posterior neck abscess also present. LABS: Accu-Cheks 213, 288, 212, and WBC 5, hemoglobin is 13.3. REVIEW OF SYSTEMS: CARDIOVASCULAR: No angina. RESPIRATORY: As mentioned earlier. GI: As mentioned earlier. : As mentioned earlier. NERVOUS SYSTEM: Mildly drowsy. DERMATOLOGY: As mentioned earlier. Current medications are reviewed and include: 1. Tylenol 500 q.4. 2. Lysite 5 mg. 3. Xanax. 4. Norvasc. 5. Unasyn IV that is 3 grams IV q.6h. 6. Catapres q.48h. 7. Heparin 5000 subcu q.8. 8. Apresoline 10 mg daily. 9. Dilaudid. 10. Lantus 30 units subcu q.h.s. 11. Multivitamins. 12. Habitrol 14. 13. Protonix. 14. Vancomycin. ASSESSMENT: 1. Acute cellulitis and abscess of the left upper medial thigh status post incision and drainage with acute sepsis, present on admission. 2. Left posterior neck abscess status post incision and drainage. 3. Diabetes mellitus type 2 new onset, uncontrolled, present on admission. 4. Increased plasma lactic acid secondary to sepsis, present on admission. 5. Morbid obesity with body mass index of 53.6 present on admission. 6. History of hypertension, essential. 7. History of liver disease. 8. History of attention deficit hyperactive disorder and attention deficit disorder. 9. History of depression, not otherwise specified. 10. History of nicotine dependence. 11. FULL CODE. RECOMMENDATIONS AND DISCUSSION: In this 35-year-old gentleman who presented with multiple complex medical issues, will monitor the patient closely. Continue the current pain medications, symptomatic treatment. Continue with pain medications, continue with broad spectrum IV antibiotics. Adjust the dose of insulin and Lantus increased to 40 units subcu daily. Otherwise see orders for further details. Prognosis guarded. Discussed with staff and with patient. Will closely follow with Infectious Disease and as well as Surgery. Further recommendations to follow. Prognosis again, guarded because of multiple complex medical issues as detailed above.
[2016-09-25 16:55] LABS: Glucose,Whole Blood 152 mg/dL (75-99)
[2016-09-25] MEDS: metFORMIN 500 MG TAB PO SCH (17:10)
[2016-09-25 20:46] LABS: Glucose,Whole Blood 175 mg/dL (75-99)
[2016-09-25] MEDS: ALPRAZolam 0.25 MG TAB PO PRN (21:18)
[2016-09-25] MEDS: INSULIN GLARGINE 100 UNIT/ML 10 ML VIAL SQ SCH (21:18)
[2016-09-26] MEDS: VANCOMYCIN 2,500 MG in SODIUM CHLORIDE 0.9% 500 ML IVPB SCH ×4 (01:51→18:00)
[2016-09-26] MEDS: AMPICILLIN-SULBACTAM 3 GM in SODIUM CHLORIDE 0.9% 100 ML IVPB SCH ×2 (04:09→08:11)
[2016-09-26] MEDS: HYDROcodone/APAP 5-325MG 1 EACH TAB PO PRN ×3 (05:24→20:58)
[2016-09-26] MEDS: ALPRAZolam 0.25 MG TAB PO PRN ×3 (05:27→20:58)
[2016-09-26 07:08] LABS: Glucose,Whole Blood 109 mg/dL (75-99)
[2016-09-26] MEDS: INSULIN LISPRO (humaLOG) 300 UNIT/3 ML VIAL SQ SCH ×7 (07:32→20:58)
[2016-09-26] MEDS: HYDROmorphone 1 MG/ML 1 ML SYRINGE IVP PRN ×2 (07:33→15:52)
[2016-09-26] MEDS: amLODIPine 5 MG TAB PO SCH ×2 (08:11→20:58)
[2016-09-26] MEDS: HEPARIN SODIUM,PORCINE 5,000 UNIT/ML 1 ML VIAL SQ SCH ×4 (08:11→23:43)
[2016-09-26] MEDS: PANTOPRAZOLE 40 MG TABLET PO SCH (08:11)
[2016-09-26] MEDS: metFORMIN 500 MG TAB PO SCH ×2 (08:11→17:56)
[2016-09-26] MEDS: NICOTINE 14MG/24HR PATCH TRANSDERM SCH (08:11)
[2016-09-26 08:52] LABS: Basophils % (A) 1 %; CH 33.3; CHCM 35.2; Eosinophils # (A) 0.2 k/uL (0-0.7); Eosinophils % (A) 3 %; HCT 39.5 % (39.0-53.0); HDW 3.09; HGB 13.3 gm/dL (13.0-17.5); Luc # (Auto) 0.12; Luc % (Auto) 3; Lymphocytes # (A) 1.3 k/uL (1.0-4.8); Lymphocytes % (A) 27 %; MCHC 33.7 g/dL (31.0-37.0); Mean Platelet Volume 7.3; Monocytes # (A) 0.3 k/uL (0-1.0); Monocytes % (A) 7 %; Neutrophils # (A) 2.8 k/uL (1.3-7.7); Neutrophils % (A) 59 %; RBC 4.16 m/uL (4.30-5.90); RDW 12.4 % (11.5-15.5); WBC 4.7 k/uL (3.8-10.6); WBC (Perox) 4.53
[2016-09-26 09:24] LABS: Anion Gap 6 mmol/L; Blood Urea Nitrogen 11 mg/dL (9-20); Calcium 8.8 mg/dL (8.4-10.2); Carbon Dioxide 30 mmol/L (22-30); Chloride 103 mmol/L (98-107); Glucose 106 mg/dL (74-99); Non-African American GFR(MDRD) >60 (>60 ml/min/1.73 sqM); Potassium 3.6 mmol/L (3.5-5.1); Sodium 139 mmol/L (137-145)
--- NOTE | 2016-09-26 10:36 | PN ---
DATE OF SERVICE: 09/25/2016 Reason for followup is left groin/upper thigh area abscess and cellulitis. INTERVAL HISTORY: The patient is afebrile. Overall pain and swelling to the left groin or upper thigh area has improved. There is no drainage. Denies significant chest pain, shortness of breath or cough. No abdominal pain or any diarrhea. On examination, blood pressure is 159/86 with a pulse of 89, temperature 98.4. He is 97% on room air. General description is a middle-age male lying in bed in no distress. RESPIRATORY SYSTEM: Unlabored breathing. Clear to auscultation anteriorly. HEART: S1, S2. Regular rate and rhythm. ABDOMEN: Soft, no tenderness. Left upper thigh area swelling and induration has improved. No drainage was noticed. LABS: Hemoglobin is 13, white cell count 4.5 with a BUN of 14, creatinine 0.51. Cultures so far negative. DIAGNOSTIC IMPRESSION AND PLAN: Patient with left upper thigh or groin area abscess with attempted aspirate in the emergency room, no significant drainage was noticed. Culture obtained so far negative. He is currently on Unasyn and vancomycin. If the culture remains negative, plan to finish therapy with oral Augmentin 875 b.i.d. for another 10 days with outpatient followup. Continue supportive care.
[2016-09-26 11:32] LABS: Glucose,Whole Blood 147 mg/dL (75-99)
--- NOTE | 2016-09-26 12:05 | PN ---
DATE OF SERVICE: 09/25/2016 This 35-year-old gentleman admitted with multiple abscesses also had incision and drainage. The patient also had features of sepsis. Patient with uncontrolled diabetes mellitus. No chest pain, no palpitations. No fever. The cultures are negative so far. Surgery and Infectious Disease are following the patient closely. On exam, alert and oriented x3. Pulse 89, blood pressure 159/86, respirations 18, temperature 98.4. Pulse ox is 97% on room air. HEENT: Conjunctivae normal. NECK: No jugular venous distention. CARDIOVASCULAR: S1 and S2, muffled. RESPIRATORY: Breath sounds diminished at the bases. A few scattered rhonchi, no crackles. ABDOMEN: Soft, obese, nontender. No mass palpable. LEGS: Minimal edema. Left inguinal abscess, status post incision and drainage. Left neck abscess status post incision and drainage. NERVOUS SYSTEM: No focal deficits. LABS: WBC 4, hemoglobin 13. Accu-Cheks are noted. ASSESSMENT: 1. Acute cellulitis and abscess of the left upper medial thigh and as well as left posterior neck, status post incision and drainage with acute sepsis, present on admission. 2. Diabetes mellitus type 2, new onset uncontrolled, present on admission. 3. Increased plasma lactic acid secondary to sepsis, present on admission. 4. Morbid obesity with body mass index of 53.6, present on admission. 5. History of hypertension, essential. 6. History of liver disease. 7. History ADD and ADHD. 8. History of depression, not otherwise specified. 9. History of nicotine dependence. 10. FULL CODE. RECOMMENDATIONS AND DISCUSSION: In this 35-year-old gentleman who presented the multiple complex medical issues, we will monitor the patient closely. Continue the current medications and continue symptomatic treatment. Otherwise, at this time, I would recommend continue with broad-spectrum IV antibiotics. Monitor blood sugars closely. Adjust the Lantus dosage. Guarded prognosis because of multiple complex medical issues. Further recommendations to follow.
[2016-09-26] MEDS: MULTIVITAMINS, THERA 1 EACH TAB PO SCH (13:12)
--- NOTE | 2016-09-26 14:46 | P.PN ---
Progress Note - Text Patient is doing well. Denies chills, fevers, nausea, vomiting, shortness of breath, chest pain, or abdominal pain. Incisional pain controlled. On exam, patient's vital signs are normal. Wound sites with minimal drainage and resolving cellulitis. Impression: Status post incision and drainage of abscess of left thigh and posterior neck. Plan: Continue local wound care. Continue oral antibiotics. Follow-up with Dr. Mi as an outpatient in one week. The above impression and plan have been discussed and directed by Dr. Burt. Tess GAMBOA acting as scribe for Dr. Mi.
[2016-09-26 17:15] LABS: Glucose,Whole Blood 192 mg/dL (75-99)
--- NOTE | 2016-09-26 18:40 | PN ---
DATE OF SERVICE: 09/26/2016 Reason for follow-up: Left groin/thigh abscess and cellulitis. INTERVAL HISTORY: The patient is afebrile, he is currently breathing comfortably. Denies significant chest pain or cough. No abdominal pain. some pain left wound area. On examination, blood pressure is 132/86 with pulse 93, temperature 97.7, he is 95% on room air. General description is a middle-age male lying in bed in no distress. RESPIRATORY SYSTEM: Unlabored breathing. Clear to auscultation anteriorly. HEART: S1, S2 regular rate and rhythm. ABDOMEN: Soft, no tenderness. Left upper thigh area swelling and induration decreased, no drainage noticed. LABS: BUN of 11, creatinine 0.52. Culture now showing presumptive MRSA. blood culture negative. DIAGNOSTIC IMPRESSION AND PLAN: Patient with left upper thigh/groin area status post attempted drainage. Overall decreased in the size. Patient will continue on vancomycin while waiting for the final ID and sensitivity of this pathogen, that is growing in the wound that will determine the discharge antibiotics and discontinue the Unasyn. AURA
[2016-09-26 20:55] LABS: Glucose,Whole Blood 147 mg/dL (75-99)
[2016-09-26] MEDS: INSULIN GLARGINE 100 UNIT/ML 10 ML VIAL SQ SCH (20:58)
[2016-09-27] MEDS: VANCOMYCIN 2,500 MG in SODIUM CHLORIDE 0.9% 500 ML IVPB SCH ×2 (01:39→10:03)
[2016-09-27] MEDS ORDERED: HYDROmorphone 1 MG/ML 1 ML SYRINGE ONE (03:10)
[2016-09-27 07:35] LABS: Glucose,Whole Blood 136 mg/dL (75-99)
--- NOTE | 2016-09-27 07:42 | PN ---
DATE OF SERVICE: 09/26/2016 This is a 35-year-old gentleman who was admitted with acute cellulitis and abscess of the left upper medial thigh as well as left posterior neck is being closely monitored. Patient on broad-spectrum IV antibiotics. The cultures are showing presumptive MRSA. No chest pain, no palpitation, no fever. Blood sugars also being controlled well also. The sugars are 109, 106 and 147. On exam, alert and oriented x2. Pulse is 93, blood pressure 130/86, respirations 16, temperature is 97.9, pulse ox 94% on room air. HEENT: Conjunctivae normal. NECK: No jugular venous distension. CARDIOVASCULAR: S1, S2, muffled. RESPIRATORY: Breath sounds at the bases, no rhonchi, no crackles. ABDOMEN is soft, obese, nontender. LEGS: Significant edema present. Otherwise left upper thigh abscess, status post incision and drainage, left posterior neck also abscess incision and drainage. NERVOUS SYSTEM: No focal deficits. SKIN: As mentioned earlier. Labs: WBC is 4.7, hemoglobin is 13.3 and glucose 106. ASSESSMENT: 1. Acute cellulitis and abscess of the left upper medial thigh with possible methicillin-resistant Staphylococcus aureus, status post incision and drainage with acute sepsis, present on admission. 2. Left posterior neck abscess, status post incision and drainage. 3. Diabetes mellitus type 2, new onset, uncontrolled, present on admission. 4. Increased plasma lactic acid secondary to sepsis, present on admission. 5. Morbid obesity with a body mass index of 53.6 present on admission. 6. History of hypertension, essential. 7. History of liver disease. 8. History of attention deficit disorder, attention deficit hyperactivity disorder. 9. History of depression, not otherwise specified. 10. History of nicotine dependence. 11. FULL CODE. RECOMMENDATION: Recommend to continue with the monitoring and symptomatic treatment. Continue with the broad-spectrum IV antibiotics. Closely monitor. Otherwise, guarded prognosis. Further recommendations to follow. See orders for details.
[2016-09-27] MEDS: INSULIN LISPRO (humaLOG) 300 UNIT/3 ML VIAL SQ SCH ×4 (08:02→13:04)
[2016-09-27] MEDS: NICOTINE 14MG/24HR PATCH TRANSDERM SCH (08:05)
[2016-09-27] MEDS: amLODIPine 5 MG TAB PO SCH (08:07)
[2016-09-27] MEDS: PANTOPRAZOLE 40 MG TABLET PO SCH (08:07)
[2016-09-27] MEDS: metFORMIN 500 MG TAB PO SCH (08:08)
[2016-09-27] MEDS: HEPARIN SODIUM,PORCINE 5,000 UNIT/ML 1 ML VIAL SQ SCH (08:08)
[2016-09-27 08:16] VITALS: BP 172/89; PULSE 90; RESP 18; TEMP 97.8
[2016-09-27] MEDS ORDERED: VANCOMYCIN TROUGH DUE 1 EACH MISC MISCELLANE ONE (09:00)
[2016-09-27 09:26] LABS: Basophils % (A) 1 %; CHCM 34.8; Eosinophils # (A) 0.2 k/uL (0-0.7); Eosinophils % (A) 4 %; HCT 40.4 % (39.0-53.0); HDW 3.16; HGB 13.5 gm/dL (13.0-17.5); Luc # (Auto) 0.11; Luc % (Auto) 3; Lymphocytes # (A) 1.4 k/uL (1.0-4.8); Lymphocytes % (A) 32 %; MCH 31.7 pg (25.0-35.0); MCHC 33.3 g/dL (31.0-37.0); MCV 95.2 fL (80.0-100.0); Mean Platelet Volume 7.1; Monocytes # (A) 0.3 k/uL (0-1.0); Monocytes % (A) 7 %; Neutrophils # (A) 2.3 k/uL (1.3-7.7); Neutrophils % (A) 53 %; RBC 4.24 m/uL (4.30-5.90); RDW 12.6 % (11.5-15.5); WBC 4.4 k/uL (3.8-10.6); WBC (Perox) 4.37
[2016-09-27 09:44] LABS: Anion Gap 7 mmol/L; Blood Urea Nitrogen 12 mg/dL (9-20); Carbon Dioxide 27 mmol/L (22-30); Chloride 105 mmol/L (98-107); Glucose 115 mg/dL (74-99); Non-African American GFR(MDRD) >60 (>60 ml/min/1.73 sqM); Potassium 4.3 mmol/L (3.5-5.1); Sodium 139 mmol/L (137-145)
[2016-09-27] MEDS: ALPRAZolam 0.25 MG TAB PO PRN (10:02)
[2016-09-27] MEDS: HYDROcodone/APAP 5-325MG 1 EACH TAB PO PRN (10:02)
[2016-09-27 11:26] LABS: Glucose,Whole Blood 135 mg/dL (75-99)
[2016-09-27] MEDS: HYDROmorphone 1 MG/ML 1 ML SYRINGE IVP PRN (11:28)
--- NOTE | 2016-09-27 12:06 | P.PN ---
Progress Note - Text Patient is doing well. Denies chills, fevers, nausea, vomiting, shortness of breath, chest pain, or abdominal pain. Incisional pain controlled. On exam, patient's vital signs are normal. Wound sites with minimal drainage and resolving cellulitis. Impression: Status post incision and drainage of abscess of left thigh and posterior neck. Plan: Continue local wound care. Continue antibiotics per infectitious disease recommendations. Follow-up with Dr. Mi as an outpatient in one week. The above impression and plan have been discussed and directed by Dr. Burt. Tess GAMBOA acting as scribe for Dr. Mi.
[2016-09-27] MEDS: MULTIVITAMINS, THERA 1 EACH TAB PO SCH (13:03)
--- NOTE | 2016-09-27 16:46 | PN ---
DATE OF SERVICE: 09/27/2016 REASON FOR FOLLOWUP: Left groin/upper thigh MRSA abscess and cellulitis. INTERVAL HISTORY: The patient is afebrile. He is currently breathing comfortably. Denies significant chest pain or cough. No abdominal pain or any worsening pain in the left groin area. On examination, blood pressure is 172/89 with a pulse of 90, temperature 97.8. He is 96% on room air. General description is a middle-aged male lying in bed in no distress. RESPIRATORY SYSTEM: Unlabored breathing. Clear to auscultation anteriorly. HEART: S1, S2. Regular rate and rhythm. ABDOMEN: Soft. No tenderness. LEFT GROIN AND UPPER THIGH AREA: Overall induration has decreased. No drainage was noticed. LABS: Hemoglobin is 13.5, white count 4.4. BUN of 12, creatinine 0.51. Blood culture negative. Wound culture with MRSA. DIAGNOSTIC IMPRESSION AND PLAN: Patient with left thigh abscess, cellulitis with drainage in the ER. Cultures did show MRSA finalized today. Patient does show overall improvement on vancomycin. He will be switched over to Bactrim DS one twice a day for about 2 weeks with close outpatient followup. Continue supportive care. MTDD
--- NOTE | 2016-09-28 12:14 | DS ---
DATE OF ADMISSION: 09/23/2016 DATE OF DISCHARGE: 09/27/2016 FINAL DIAGNOSES: 1. Acute cellulitis and abscess left upper medial thigh with methicillin-resistant Staphylococcus aureus status post incision and drainage with acute sepsis, present on admission. 2. Left posterior neck abscess status post incision and drainage. 3. Type 2 diabetes mellitus, new onset, uncontrolled, present on admission. 4. Increased plasma lactic acid secondary to sepsis, present on admission. 5. Morbid obesity. Body mass index 53.6, present on admission. 6. History of hypertension, essential. 7. History of chronic liver disease. 9. History of depression not otherwise specified. 10. History of nicotine dependence. 11. FULL CODE. DISCHARGE DISPOSITION: Patient will be discharged in a stable condition with guarded prognosis. HISTORY OF PRESENT ILLNESS: This 35 -year-old gentleman with a past medical history of multiple medical problems as mentioned earlier being followed by Dr. Rosa Muñiz in the outpatient setting was admitted to the hospital with acute cellulitis and abscess left upper medial thigh. The patient also had abscess of the left posterior neck area also which both were I&D and surgery saw the patient and patient improved significantly. Methicillin-resistant Staphylococcus aureus grown from the culture. On exam, vitals are stable. CARDIOVASCULAR SYSTEM: S1, S2 muffled. ABDOMEN: Soft. Nervous system: No focal deficits. The patient is on Lantus insulin for control of sugars which have been 130s and 150s. DISCHARGE ADVICE AND MEDICATIONS: 1. Diet is cardiac. Consistent carb. 2. Activity limited until follow up. 3. Follow-up with Dr. Rosa Muñiz in 2 to 3 days. 4. Follow-up with Dr. Ramon as advised. 5. Follow-up with Dr. Mi as advised. 6. Medications will be as follows: 7. Norvasc 5 mg p.o. b.i.d. 8. dextro amphetamine 20 mg p.o. t.i.d. 9. Hydrocodone 5 mg q.6 p.r.n. 10. Lantus 50 units subcu q.h.s. 11. Glucovance 5 mg p.o. b.i.d. 12. Multivitamin 1 p.o. p.o. daily. 13. Habitrol 14 daily. 14. Protonix 40 mg. 15. Bactrim DS one p.o. b.i.d. for 14 days. 16. Accu-Cheks a.c. and at bedtime results to Dr. Muñiz and continued monitoring. 17. Novolog 5 units subcu a.c. t.i.d. MTDD
== END 2016-09-27 17:28 | disposition home or self-care (01) | DRG 872 ==
LOC: EC 02:16 → 5MS5E 04:02
PROVIDERS: ADMIT Internal Medicine; ATTEND Internal Medicine
PROC: 0H9JXZX Drainage of Left Upper Leg Skin, External Approach, Diagnostic (ICD-10-PCS; principal; 2016-09-24)
PROC: 0H94XZZ Drainage of Neck Skin, External Approach (ICD-10-PCS; 2016-09-24)
DX: A41.9 Sepsis, unspecified organism (principal); E11.65 Type 2 diabetes mellitus with hyperglycemia; I10 Essential (primary) hypertension; Z68.43 Body mass index [BMI] 50.0-59.9, adult; L02.11 Cutaneous abscess of neck; L02.416 Cutaneous abscess of left lower limb; L03.116 Cellulitis of left lower limb; E66.01 Morbid (severe) obesity due to excess calories; B95.62 Methicillin resistant Staphylococcus aureus infection as the cause of diseases classified elsewhere; K76.9 Liver disease, unspecified; F32.9 Major depressive disorder, single episode, unspecified; F90.9 Attention-deficit hyperactivity disorder, unspecified type; F17.200 Nicotine dependence, unspecified, uncomplicated; F12.90 Cannabis use, unspecified, uncomplicated; Z79.899 Other long term (current) drug therapy
CPT/HCPCS: 36415; 80048; 80053; 80202; 82009; 82550; 82553; 83036; 83605; 84484; 85025; 85610; 85730; 87040; 87070; 87077; 87186; 87205; 93005; 94760